=== PATIENT | female | born 1960 | race Caucasian/White ===

== ENCOUNTER 2016-10-25 05:52 | Inpatient (IN) | payer OTHER ==
[~2016-10-25] VITALS: Ht 180.3 cm; Wt 105.9 kg
[2016-10-25] VITALS (21 sets, daily range): BP systolic 114–147; BP diastolic 59–99; PULSE 66–86; RESP 12–18; Ht 180.3 cm; Wt 105.9 kg
[~2016-10-25 05:52] MED LIST: GABAPENTIN 300 MG CAP PO SCH; TRANEXAMIC ACID 1,000 MG in SOD CHLORIDE 0.9% 100 ML IVPB SCH; VANCOMYCIN 1 GM (PMX) 250 ML IVPB SCH; traMADol 50 MG TAB PO SCH
[2016-10-25] MEDS ORDERED: DEXAMETHASONE 1 MG TAB PO SCH (06:30)
[2016-10-25] MEDS ORDERED: VANCOMYCIN 1 GM (PMX) 250 ML IVPB SCH (06:30)
[2016-10-25] MEDS ORDERED: TRANEXAMIC ACID 1,000 MG in SOD CHLORIDE 0.9% 100 ML IVPB SCH (06:30)
[2016-10-25] MEDS ORDERED: BUPIVACAINE 0.5% (SDV) 30 ML, morphine SULFATE (PF) 8 MG, EPINEPHrine 0.3 MG, KETOROLAC... IRR SCH ×7 (06:30)
[2016-10-25] MEDS ORDERED: GABAPENTIN 300 MG CAP PO SCH ×2 (06:30→21:00)
[2016-10-25] MEDS ORDERED: traMADol 50 MG TAB PO SCH (06:30)
[2016-10-25] MEDS ORDERED: BUPIVACAINE 0.5%/EPI (SDV) 30 ML INJ ONE (06:40)
[2016-10-25] MEDS ORDERED: CA CHLORIDE 10% 10 ML SYRINGE ONE (06:41)
[2016-10-25] MEDS ORDERED: THROMBIN 5000 UNIT VIAL ONE (06:41)
[2016-10-25] MEDS ORDERED: POLYMYXIN/BACITRACIN 1L IRRIG ONE (06:41)
[2016-10-25] MEDS ORDERED: FENTAnyl 50 MCG/ML VIAL ONE (06:47)
[2016-10-25] MEDS ORDERED: ROPIVACAINE 0.5 % 30 ML VIAL ONE (06:47)
[2016-10-25] MEDS ORDERED: MIDAZOLAM 1 MG/ML 2 ML INJ ONE (06:47)
[2016-10-25] MEDS ORDERED: SUCCINYLCHOLINE CHLORIDE 100 MG/5 ML SYG IV ONE (07:00)
[2016-10-25] MEDS ORDERED: ROCURONIUM 50 MG INJ ONE (07:00)
[2016-10-25] MEDS ORDERED: CELE200C PO (07:05)
[2016-10-25] MEDS ORDERED: PROPOFOL 20 ML ONE (07:44)
[2016-10-25] MEDS ORDERED: LIDOCAINE 2% (SDV) 5 ML INJ ONE (07:44)
[2016-10-25] MEDS ORDERED: GLYCOPYRROLATE 0.4 MG INJ ONE (07:44)
[2016-10-25] MEDS ORDERED: NEOSTIGMINE 3 MG/3 ML SYRINGE ONE (07:44)
[2016-10-25] MEDS ORDERED: MEPERIDINE 25 MG INJ IV PRN (08:00)
[2016-10-25] MEDS ORDERED: DIPHENHYDRAMINE 50 MG INJ IV PRN ×2 (08:00→09:30)
[2016-10-25] MEDS ORDERED: HYDROmorphONE (0.2 MG/ML) 10ML SYG IV PRN ×2 (08:00)
[2016-10-25] MEDS ORDERED: ONDANSETRON 4 MG INJ IV PRN ×2 (08:00→09:30)
[2016-10-25] MEDS ORDERED: METOCLOPRAMIDE 10 MG INJ IV PRN ×2 (08:00→16:30)
[2016-10-25] MEDS ORDERED: FENTAnyl 50 MCG/ML VIAL IV PRN ×3 (08:00)
--- NOTE | 2016-10-25 09:00 | HPN ---
Date/Time of Note Date/Time of Note DATE: 10/25/16 TIME: 08:59 Interval H&P Admission Note Pt. seen H&P reviewed: No system changes WILLA MCWILLIAMS MD Oct 25, 2016 09:00
--- NOTE | 2016-10-25 09:07 | OPR ---
Date/Time of Note Date/Time of Note DATE: 10/25/16 TIME: 09:00 Operative Report Free Text/Dictation October 25, 2016 Preoperative diagnosis: Left shoulder posttraumatic osteoarthritis Postoperative diagnosis: 1. Left shoulder posttraumatic osteoarthritis 2. Left shoulder partial biceps tendon tear Procedure: 1. Left total shoulder arthroplasty 2. Left open biceps tenodesis Surgeon: Willa Mcwilliams MD Procedure in detail: Following the administration of general endotracheal anesthesia supplemented with a scalene block, the patient was placed in the beachchair position. The left upper extremity was prepped and draped in the usual sterile fashion. A deltopectoral incision was then undertaking exposing the conjoined tendon and retracting it medially. The subscapularis was then incised as well as the bicipital groove. The biceps was seen to be partially torn and frayed. The intra-articular portion was resected and the biceps was fixed to the bicipital groove using multiple sutures. The subscapularis was then detached and the shoulder evaluated. Severe arthritic changes were noted on both sides of the joint. Peripheral osteophytes were removed and a humeral head cut was then made in the appropriate degree of version and inclination. The glenoid was then exposed peripheral osteophytes and a capsulectomy was then completed. The central canal was entered and prepared for a 44 mm Depuy glenoid component. This was cemented into position with solid fixation. The humerus was then reamed up to the 14 mm size and a Depuy component was then placed with a 48 mm by 18 mm humeral head. Solid fixation was obtained the joint was taken through full range of motion with no instability. The joint was thoroughly irrigated closed using running sutures followed by a Prenio dressing. A watertight closure was obtained. An UltraSling was then placed. The patient was awakened and transported to recovery in stable condition tolerated procedure well estimated blood loss for the procedure was 100 cc. Postoperative radiographs will be obtained in the recovery room. Procedure Date: Oct 25, 2016 Preoperative Diagnosis Posttraumatic osteoarthritis of the left shoulder Postoperative Diagnosis 1. posttraumatic arthritis of the left shoulder 2 biceps partial tendon tear, left shoulder Operation Performed 1 left total shoulder arthroplasty 2 left open biceps tenodesis Anesthesia: general Estimated Blood Loss: 50 - 100 ml's Complications: None Pt Condition Post Procedure: stable Disposition: PACU WILLA MCWILLIAMS MD Oct 25, 2016 09:07
[2016-10-25] MEDS ORDERED: KETOROLAC 15 MG INJ IV PRN (09:30)
[2016-10-25] MEDS ORDERED: TRANEXAMIC ACID 1,000 MG in SOD CHLORIDE 0.9% 100 ML IV ONE (09:30)
[2016-10-25] MEDS ORDERED: OXYCODONE/ACETAMINOPHEN (5/325) TAB PO PRN (09:30)
[2016-10-25] MEDS ORDERED: ACETAMINOPHEN 500 MG TAB PO PRN (09:30)
[2016-10-25] MEDS ORDERED: morphine 2 MG INJ IV PRN (09:30)
[2016-10-25] MEDS ORDERED: morphine 4 MG/ML VIAL IV PRN (09:30)
[2016-10-25] MEDS ORDERED: ZOLPIDEM 5 MG TAB PO PRN (09:30)
[2016-10-25] MEDS ORDERED: MAGNESIUM HYDROXIDE 30ML CUP PO PRN (09:30)
[2016-10-25] MEDS: HYDROmorphONE (0.2 MG/ML) 10ML SYG IV PRN ×3 (09:40→10:40)
[2016-10-25] MEDS: DEXAMETHASONE 2 MG TAB PO SCH ×3 (10:08→20:26)
--- NOTE | 2016-10-25 11:03 | CONS ---
Date/Time of Note Date/Time of Note DATE: 10/25/16 TIME: 10:53 Assessment/Plan Assessment/Plan Chief Complaint/Hosp Course dx s/p shoulder replacement left 2djd 3 menopausal 4. stable health plan will folloiw with you thank you dwain rey Problems: Consultation Date/Type/Reason Admit Date/Time Oct 25, 2016 at 05:52 Initial Consult Date 10/22/2016 Type of Consultation: pre-op internal medicine consu Reason for Consultation medical clearance Referring Provider: WILLA MCWILLIAMS MD 24 HR Interval Summary Free Text/Dictation post-op consult patient seen in recovery room-stable recognizes me. rousable Constitutional: No chills, No diaphoresis, No disoriented, No febrile, No improved, No no complaints, No other, No poor po, No requiring IVF, No requiring O2 Exam/Review of Systems Vital Signs Vitals Vital Signs Date Time Temp Pulse Resp B/P Pulse Ox O2 Delivery O2 Flow Rate FiO2 10/25/16 10:12 97.9 70 14 117/76 93 Nasal Cannula 2.0 Exam Constitutional: alert, oriented, well developed Eyes: No EOMI, No PERRL, No fundi, disc, No icteric, No nl conjunctiva, No nl lids, No nl sclera, No other Neck: No bruits, No jvd, No masses, No non-tender, No nuchal rigidity, No other , No supple, No thyromegaly Respiratory: No clear to auscultation, No congested cough, No crackles/rales, No diminished breath sounds, No intercostal retraction, No labored breathing, No normal air movement, No other, No respirations, No tactile fremitus, No wheezing Cardiovascular: No S3, No S4, No bruits, No diastolic murmur, No edema, No gallop, No irregular rhythm, No jugular venous distention (JVD), No murmurs/ extra sounds, No nl pulses, No other, No regular rate and rhythm, No rub, No systolic murmur Additional Comments patient stable post op Medications Medications Current Medications Bupivacaine HCl/ Morphine Sulfate/ Epinephrine/ Ketorolac Tromethamine/ Clonidine/Sodium Chloride/ Vancomycin HCl (Marcaine 0.5% (Sdv)/Duramorph/ EPINEPHrine/ Toradol/Duraclon/ NS/Vancocin) INTRA-OP IRR Last administered on 10/25/16 07:52; Admin Dose 90.3 ML; Start 10/25/16 at 06:30; Stop 10/25/16 at 12:00 Dexamethasone 2 mg 2 mg PREOP PO Last administered on 10/25/16 06:37; Admin Dose 2 MG; Start 10/25/16 at 06:30; Stop 10/25/16 at 12:00 Vancomycin HCl (Vancocin) 250 ml @ 250 mls/hr PRE-OP IVPB Last administered on 10/25/16 06:36; Admin Dose 250 MLS/HR; Start 10/25/16 at 06:30; Stop at 12:00 Tramadol HCl (Ultram) 50 mg PRE-OP PO Last administered on 10/25/16 06:37; Admin Dose 50 MG; Start 10/25/16 at 06:30; Stop 10/25/16 at 12:00 Gabapentin 600 mg 600 mg PRE-OP PO Last administered on 10/25/16 06:37; Admin Dose 600 MG; Start 10/25/16 at 06:30; Stop 10/25/16 at 12:00 Tranexamic Acid 1000 mg/Sodium Chloride 110 ml @ 200 mls/hr Pre-op IVPB ; Start 10/25/16 at 06:30; Stop 10/25/16 at 12:00 Vancomycin HCl (Vancocin) 100 ml @ 100 mls/hr Q12H IVPB ; Start 10/25/16 at 18: 00; Stop 10/26/16 at 06:59 Senna/Docusate Sodium (Senokot-S) 1 tab BID PO ; Start 10/25/16 at 21:00 Simethicone (Mylicon) 80 mg TID PRN PO DISTENSION/GAS/BLOATING; Start 10/25/16 at 09:30 Magnesium Hydroxide (Milk Of Mag) 30 ml BID PRN PO CONSTIPATION; Start at 09:30 Acetaminophen (Tylenol Tab) 1,000 mg Q4H PRN PO TEMP GREATER THAN 100.4F; Start 10/25/16 at 09:30 Dexamethasone (Decadron) 2 mg Q6H PO Last administered on 10/25/16 10:08; Admin Dose 4 MG; Start 10/25/16 at 09:20; Stop 10/26/16 at 03:21 Gabapentin (Neurontin) 300 mg HS PO ; Start 10/25/16 at 21:00 Oxycodone/ Acetaminophen (Percocet (5/ 325)) 1 tab Q4H PRN PO PAIN LEVEL 1-5; Start 10/25/16 at 09:30 Oxycodone/ Acetaminophen (Percocet (5/ 325)) 2 tab Q4H PRN PO PAIN LEVEL 6-10; Start 10/25/16 at 09:30 Morphine Sulfate (morphine) 2 mg Q2H PRN IV PAIN LEVEL 1-5; Start 10/25/16 at 09:30 Morphine Sulfate (morphine) 4 mg Q4H PRN IV PAIN LEVEL 6-10; Start 10/25/16 at 09:30 Ketorolac Tromethamine (Toradol) 15 mg Q6H PRN IV PAIN Last administered on t 09:45; Admin Dose 15 MG; Start 10/25/16 at 09:30; Stop 10/28/16 at 09:29 Ondansetron HCl (Zofran Inj) 4 mg Q6H PRN IV NAUSEA AND/OR VOMITING; Start at 09:30 Diphenhydramine HCl (Benadryl) 25 mg Q6H PRN IV PRURITUS; Start 10/25/16 at 09: 30 Aspirin (Aspirin) 81 mg DAILY PO ; Start 10/26/16 at 09:00 KENIA VALDEZ MD Oct 25, 2016 11:03
--- NOTE | 2016-10-25 11:43 | RADRPT ---
PROCEDURE: XR Left Shoulder. CLINICAL INDICATION: Left shoulder pain. Postop. TECHNIQUE: Two views. Frontal and oblique. COMPARISON: No prior study is available for comparison. FINDINGS: There is a left humeral head prosthesis. This appears satisfactory. There is no fracture, dislocation, or loosening. Gas is present in the soft tissues related to the recent surgery. IMPRESSION: 1. Satisfactory postoperative appearance of the left shoulder. RPTAT: QQ .Arvin Diaz MD, MD Date Time Electronically viewed and signed by .Arvin Diaz MD, MD on 10/25/2016 11:43 .R/
[2016-10-25] MEDS ORDERED: CALCIUM CARBONATE 500 MG CHEW TAB PO PRN (16:30)
[2016-10-25] MEDS: PANTOPRAZOLE 40 MG INJ IV SCH (18:29)
[2016-10-25] MEDS: VANCOMYCIN 500MG/NS (PMX) 100 ML IVPB SCH (18:32)
[2016-10-25] MEDS: SENNA/DOCUSATE NA (8.6MG/50MG) TAB PO SCH (20:26)
[2016-10-26] VITALS: BP 133/71; RESP 18
[2016-10-26] MEDS: OXYCODONE/ACETAMINOPHEN (5/325) TAB PO PRN ×3 (00:56→09:24)
[2016-10-26] MEDS: DEXAMETHASONE 2 MG TAB PO SCH (04:21)
--- NOTE | 2016-10-26 05:12 | PDOCDIS ---
Discharge Instructions DIAGNOSIS Discharge Diagnosis Left shoulder post arthritis CONDITION Patient Condition: Good HOME CARE INSTRUCTIONS: Diet Instructions: RegularSpecial Diet: new admit ACTIVITY: Activity Restrictions: Slowly Increase Activity Keep Limb Elevated Bathing Restrictions: Shower FOLLOW UP/APPOINTMENTS Follow-up Plan 2 weeks SCHOOL/WORK RELEASE May return to School/Work with: With Restrictions School/Work Release Comment: 5 pounds tabletop usage bilateral arms for 6 weeks WILLA MCWILLIAMS MD Oct 26, 2016 05:12
--- NOTE | 2016-10-26 05:13 | DS ---
Date/Time of Note Date/Time of Note DATE: 10/26/16 TIME: 05:12 Discharge Summary Admission/Discharge Info Admit Date/Time Oct 25, 2016 at 05:52 Discharge Date/Time October 26, 2016 following physical therapy Discharge Diagnosis Left shoulder posttraumatic arthritis Patient Condition: Good Procedures Left total shoulder replacement Hx of Present Illness Pain and stiffness of the left shoulder for several years Hospital Course Patient was admitted and underwent a standard total shoulder replacement. Postoperative day #1 she was afebrile to be discharged and followed up in the office in 2 weeks Home Meds Reported Medications Celecoxib* (Celebrex*) 200 Mg Capsule, 200 MG PO BID, CAP 10/25/16 Primary Care Provider Not On Staff Doctor WILLA MCWILLIAMS MD Oct 26, 2016 05:13
[2016-10-26] MEDS: VANCOMYCIN 500MG/NS (PMX) 100 ML IVPB SCH (05:31)
[2016-10-26] MEDS: PANTOPRAZOLE 40 MG INJ IV SCH (05:31)
--- NOTE | 2016-10-26 05:45 | PN ---
Date/Time of Note Date/Time of Note DATE: 10/26/16 TIME: 05:43 24 hour Interval Summary Patient is awake and alert with no real pain. Her nausea has resolved. Physical Exam Physical examination reveals that she is neurologically intact. Her wounds are clean and dry. She has no signs of DVT. Vital Signs Date Time Temp Pulse Resp B/P Pulse Ox O2 Delivery O2 Flow Rate FiO2 10/26/16 00:00 98.7 87 18 133/71 93 10/25/16 13:15 Nasal Cannula 2.0 Intake and Output 10/25/16 10/25/16 10/26/16 15:00 23:00 07:00 Intake Total 600 ml 300 ml Output Total 10 ml Balance 590 ml 300 ml VTE Prophylaxis VTE Prophylaxis Intervention: anti-embolic stocking Lines/Catheters IV Catheter Type: Saline Lock Serrano in Place: No Assessment/Plan Chief Complaint/Hosp Course Patient was admitted and underwent a standard total shoulder replacement. Postoperative day #1 she was afebrile to be discharged and followed up in the office in 2 weeks Problems: Assessment/Plan Assessment: She will undergo physical therapy this morning. Following that, she will be discharged home to be followed up in the office in 2 weeks Medications Medications Home Meds Reported Medications Celecoxib* (Celebrex*) 200 Mg Capsule, 200 MG PO BID, CAP 10/25/16 WILLA MCWILLIAMS MD Oct 26, 2016 05:44
[2016-10-26 05:50] VITALS: BP 108/59; PULSE 80; RESP 18
[2016-10-26 08:01] VITALS: BP 101/55; RESP 19
[2016-10-26] MEDS: SENNA/DOCUSATE NA (8.6MG/50MG) TAB PO SCH (08:33)
--- NOTE | 2016-10-26 08:39 | CONS ---
Date/Time of Note Date/Time of Note DATE: 10/26/16 TIME: 08:33 Assessment/Plan Assessment/Plan Chief Complaint/Hosp Course dx s/p shoulder replacement left 2djd 3 menopausal 4. stable health plan will folloiw with you thank you dwain rey Problems: Additional Assessment/Plan medically stable management per lien hansen Consultation Date/Type/Reason Admit Date/Time Oct 25, 2016 at 05:52 Initial Consult Date 10/22/2016 Type of Consultation: pre-op internal medicine consu Reason for Consultation medical f/u post op Referring Provider: WILLA MCWILLIAMS MD 24 HR Interval Summary Free Text/Dictation patient had a good night no complaints looking foirward to going home Constitutional: No chills, No diaphoresis, No disoriented, No febrile, No improved, No no complaints, No other, No poor po, No requiring IVF, No requiring O2 Exam/Review of Systems Vital Signs Vitals Vital Signs Date Time Temp Pulse Resp B/P Pulse Ox O2 Delivery O2 Flow Rate FiO2 10/26/16 08:01 97.9 87 19 101/55 92 10/26/16 05:50 Room Air 10/25/16 13:15 2.0 Intake and Output 10/25/16 10/25/16 10/26/16 15:00 23:00 07:00 Intake Total 600 ml 300 ml 800 ml Output Total 10 ml Balance 590 ml 300 ml 800 ml Exam Constitutional: other (post op shoulder replacement) Psych: nl mood/affect, no complaints Head: atraumatic, normocephalic Eyes: EOMI, PERRL, nl conjunctiva, nl lids, nl sclera ENMT: nl external ears & nose, nl lips & teeth, nl nasal mucosa & septum Neck: non-tender, supple Respiratory: clear to auscultation, normal air movement Cardiovascular: nl pulses, regular rate and rhythm Gastrointestinal: nl liver, spleen, non-tender, soft Genitourinary - Female: No CMT, No CVA tenderness, No nl adnexae, No nl external genitalia, No other, No uterus Extremities: normal pulses Neurological: [employer] II-XII intact, nl mental status, nl speech, nl strength Skin: nl turgor, No rash or lesions Results patient post op shoulder replacement doing well medically stable Medications Medications Current Medications Senna/Docusate Sodium (Senokot-S) 1 tab BID PO ; Start 10/25/16 at 21:00 Simethicone (Mylicon) 80 mg TID PRN PO DISTENSION/GAS/BLOATING Last administered on 10/25/16 16:53; Admin Dose 80 MG; Start 10/25/16 at 09:30 Magnesium Hydroxide (Milk Of Mag) 30 ml BID PRN PO CONSTIPATION; Start at 09:30 Acetaminophen (Tylenol Tab) 1,000 mg Q4H PRN PO TEMP GREATER THAN 100.4F; Start 10/25/16 at 09:30 Gabapentin (Neurontin) 300 mg HS PO Last administered on 10/25/16 20:26; Admin Dose 300 MG; Start 10/25/16 at 21:00 Oxycodone/ Acetaminophen (Percocet (5/ 325)) 1 tab Q4H PRN PO PAIN LEVEL 1-5 Last administered on 10/25/16 20:27; Admin Dose 1 TAB; Start 10/25/16 at 09:30 Oxycodone/ Acetaminophen (Percocet (5/ 325)) 2 tab Q4H PRN PO PAIN LEVEL 6-10 Last administered on 10/26/16 05:32; Admin Dose 2 TAB; Start 10/25/16 at 09:30 Morphine Sulfate (morphine) 2 mg Q2H PRN IV PAIN LEVEL 1-5; Start 10/25/16 at 09:30 Morphine Sulfate (morphine) 4 mg Q4H PRN IV PAIN LEVEL 6-10; Start 10/25/16 at 09:30 Ketorolac Tromethamine (Toradol) 15 mg Q6H PRN IV PAIN Last administered on 09:45; Admin Dose 15 MG; Start 10/25/16 at 09:30; Stop 10/28/16 at 09:29 Ondansetron HCl (Zofran Inj) 4 mg Q6H PRN IV NAUSEA AND/OR VOMITING Last administered on 10/25/16 13:49; Admin Dose 4 MG; Start 10/25/16 at 09:30 Diphenhydramine HCl (Benadryl) 25 mg Q6H PRN IV PRURITUS; Start 10/25/16 at 09: 30 Aspirin (Aspirin) 81 mg DAILY PO ; Start 10/26/16 at 09:00 Metoclopramide HCl (Reglan) 10 mg Q6H PRN IV NAUSEA Last administered on 16:49; Admin Dose 10 MG; Start 10/25/16 at 16:30 Pantoprazole (Protonix Iv) 40 mg BID@06,18 IV Last administered on 10/26/16 05 :31; Admin Dose 40 MG; Start 10/25/16 at 18:00 Calcium Carbonate (Tums) 500 mg Q8 PRN PO DISTENSION/GAS/BLOATING; Start at 16:30 KENIA VALDEZ MD Oct 26, 2016 08:39
[2016-10-26] MEDS ORDERED: ASPIRIN 81 MG TAB PO SCH (09:00)
--- NOTE | 2016-10-26 12:20 | CONS ---
Date/Time of Note Date/Time of Note DATE: 10/26/16 TIME: 12:18 Consultation Date/Type/Reason Admit Date/Time Oct 25, 2016 at 05:52 Initial Consult Date 10/26/16 Type of Consultation: Anesthesiology Reason for Consultation Follow up Referring Provider: WILLA MCWILLIAMS MD 24 HR Interval Summary Free Text/Dictation Pt seen and examined at bedside is POD#1 s/p Left total shoulder replacement. Pt received a single shot left interscalene block for post op pain relief. She states her pain is currently controlled. Pt states numbness in her left hand is going away and is able to move all fingers. No N/V/D/C/PATEL. Will continue to follow. Exam/Review of Systems Vital Signs Vitals Vital Signs Date Time Temp Pulse Resp B/P Pulse Ox O2 Delivery O2 Flow Rate FiO2 10/26/16 08:01 97.9 87 19 101/55 92 10/26/16 05:50 Room Air 10/25/16 13:15 2.0 Intake and Output 10/25/16 10/25/16 10/26/16 15:00 23:00 07:00 Intake Total 600 ml 300 ml 800 ml Output Total 10 ml Balance 590 ml 300 ml 800 ml Medications Medications Current Medications Senna/Docusate Sodium (Senokot-S) 1 tab BID PO Last administered on 10/26/16 08:33; Admin Dose 1 TAB; Start 10/25/16 at 21:00 Simethicone (Mylicon) 80 mg TID PRN PO DISTENSION/GAS/BLOATING Last administered on 10/25/16 16:53; Admin Dose 80 MG; Start 10/25/16 at 09:30 Magnesium Hydroxide (Milk Of Mag) 30 ml BID PRN PO CONSTIPATION; Start at 09:30 Acetaminophen (Tylenol Tab) 1,000 mg Q4H PRN PO TEMP GREATER THAN 100.4F; Start 10/25/16 at 09:30 Gabapentin (Neurontin) 300 mg HS PO Last administered on 10/25/16 20:26; Admin Dose 300 MG; Start 10/25/16 at 21:00 Oxycodone/ Acetaminophen (Percocet (5/ 325)) 1 tab Q4H PRN PO PAIN LEVEL 1-5 Last administered on 10/25/16 20:27; Admin Dose 1 TAB; Start 10/25/16 at 09:30 Oxycodone/ Acetaminophen (Percocet (5/ 325)) 2 tab Q4H PRN PO PAIN LEVEL 6-10 Last administered on 10/26/16 09:24; Admin Dose 2 TAB; Start 10/25/16 at 09:30 Morphine Sulfate (morphine) 2 mg Q2H PRN IV PAIN LEVEL 1-5; Start 10/25/16 at 09:30 Morphine Sulfate (morphine) 4 mg Q4H PRN IV PAIN LEVEL 6-10; Start 10/25/16 at 09:30 Ketorolac Tromethamine (Toradol) 15 mg Q6H PRN IV PAIN Last administered on 09:45; Admin Dose 15 MG; Start 10/25/16 at 09:30; Stop 10/28/16 at 09:29 Ondansetron HCl (Zofran Inj) 4 mg Q6H PRN IV NAUSEA AND/OR VOMITING Last administered on 10/25/16 13:49; Admin Dose 4 MG; Start 10/25/16 at 09:30 Diphenhydramine HCl (Benadryl) 25 mg Q6H PRN IV PRURITUS; Start 10/25/16 at 09: 30 Aspirin (Aspirin) 81 mg DAILY PO Last administered on 10/26/16 08:34; Admin Dose 81 MG; Start 10/26/16 at 09:00 Metoclopramide HCl (Reglan) 10 mg Q6H PRN IV NAUSEA Last administered on 16:49; Admin Dose 10 MG; Start 10/25/16 at 16:30 Pantoprazole (Protonix Iv) 40 mg BID@06,18 IV Last administered on 10/26/16 05 :31; Admin Dose 40 MG; Start 10/25/16 at 18:00 Calcium Carbonate (Tums) 500 mg Q8 PRN PO DISTENSION/GAS/BLOATING; Start at 16:30 CASSIE BO Oct 26, 2016 12:20
== END 2016-10-26 13:00 | disposition home or self-care (01) | DRG 483 ==
LOC: REC 05:52 → MS1 11:02
PROVIDERS: ADMIT Orthopaedic Surgery; ATTEND Orthopaedic Surgery
PROC: 0LS40ZZ Reposition Left Upper Arm Tendon, Open Approach (ICD-10-PCS; 2016-10-25)
PROC: 0RRK0JZ Replacement of Left Shoulder Joint with Synthetic Substitute, Open Approach (ICD-10-PCS; principal; 2016-10-25 07:00)
DX: M19.112 Post-traumatic osteoarthritis, left shoulder (principal); S46.212A Strain of muscle, fascia and tendon of other parts of biceps, left arm, initial encounter; X58.XXXA Exposure to other specified factors, initial encounter; Z96.611 Presence of right artificial shoulder joint
CPT/HCPCS: 73030; 86999; 97161; C1776; C9113; J1170; J1885; J2175; J2250; J2405; J2710; J2765; J2795; J3010; J3370; J7999

== ENCOUNTER 2018-02-11 08:40 | Day surgery (SDC) | END 2018-02-11 17:00 | disposition home or self-care (01) ==